=== PATIENT | male | born 1960 | race Caucasian/White ===

== ENCOUNTER → 2020-06-10 08:03 | Outpatient (BNVA) | payer SELFPAY | PROVIDERS: PCP Nurse Practitioner Family | DX: Z13.89 Encounter for screening for other disorder (principal) ==

== ENCOUNTER → 2022-12-14 09:52 | Outpatient (BNVA) | payer OTHER, SELFPAY | PROVIDERS: PCP Nurse Practitioner Family; Visit Provider Nurse Practitioner Family | DX: F07.81 Postconcussional syndrome (principal); G43.009 Migraine without aura, not intractable, without status migrainosus; H60.92 Unspecified otitis externa, left ear; M62.838 Other muscle spasm; H93.13 Tinnitus, bilateral | CPT/HCPCS: 99202 ==

== ENCOUNTER 2023-03-28 09:07 | Outpatient (AMB) | payer OTHER, SELFPAY ==
--- NOTE | 2023-03-28 09:08 | MHC.OFFVIS ---
Intake Vital Signs 03/28/23 09:13 Height 5 ft 8 in Weight 181 lb BMI 27.5 BP 122/88 Blood Pressure Location Lt brachial Position Sitting Pulse 74 Pulse Source Pulse Oximeter Pulse Oximetry (%) 96 Oxygen Delivery Method Room Air Intake Visit Reasons: 3 mo f/u for Headaches-Confimed Intake Note: Patient presents for 3 month follow up headaches. Patient states 'I'm much better but I'm still getting them and now with ringing in the ear stronger than before I also have been feeling pins and needles in my hands and feet and leg cramps. Allergies No Known Allergies Allergy (Unverified 03/28/23 09:23) Medication List - Last Reconciled 03/28/23 by AGGIE Mccoy ciprofloxacin-dexamethasone 0.3-0.1 % 4 drps otic (ears) Q12H 7 days loratadine 10 mg PO DAILY 30 days magnesium oxide 400 mg PO BEDTIME 30 days multivitamin 1 tab PO DAILY riboflavin (vitamin B2) 400 mg PO DAILY 30 days sumatriptan succinate 50 - 100 mg orally at onset of headache, may repeat in 2 hrs PRN; max 2 tabs per day or 4 tabs/week (may take with Ibuprofen) 30 days HPI HPI Comments History of Present Illness Details 63-yr-old male presents for f/u visit. Pt denies any significant interval medical changes. Pt reports his left ear bloody drng resolved upon taking the cipro ear gtts. He is having increased bothersome tinnitus His ENT appt was cancelled as his insurance changed and the office did not take his new insurance. His headache burden was much better after starting B2 and Mag, however he has more recently been unable to refill the B2 and headcahes have worsened. [facility] Medical History (Updated 12/14/22 @ 12:08 by AGGIE Mccoy) Depression Social History Alcohol intake: never Patient Tobacco Use Status: Never used Tobacco Review of Systems Const All systems reviewed & are unremarkable except as noted in HPI and below Physical Exam Vital Signs: Last Vital Signs Pulse 74 03/28/23 09:13 BP 122/88 03/28/23 09:13 Pulse Ox 96 03/28/23 09:13 Oxygen Delivery Method Room Air 03/28/23 09:13 BMI result Body Mass Index 27.5 Const General: cooperative and no acute distress Orientation/consciousness: patient oriented x3 HEENT Head: Yes normocephalic Resp Effort & Inspection: normal respiratory effort and able to speak in complete sentences Neuro General: patient oriented x3, gait normal and CN's II-XI intact bilaterally Cognition (Neuro): normal cognition Motor exam (neuro): 5/5 motor strength present throughout Psych Appearance: grossly normal Mental Status: mental status grossly normal Speech and movement: Normal speech and movement present Affect: normal affect Attitude: cooperative Thought process: Normal thought process present Thought content: Normal thought content present Insight: Good insight present (Psych) Judgement: Good judgement present (Psych) Assessment & Plan Assessment & Plan (1) Postconcussive syndrome: Comment: s/p concussion 05/2021 Code(s): F07.81 - Postconcussional syndrome (2) Tinnitus: Comment: bilateral, L > R, worsened s/p concussion 05/2021 Code(s): H93.19 - Tinnitus, unspecified ear Plan Will again take the liberty of referring pt to ENT for evaluation of worsening tinnitis. For overall headache management: Continue to optimize good self-care, including but not limited to maintaining a healthy diet, adequate fluid intake, adequate sleep, and engaging in regular physical activity. Track headaches. ? For acute headache treatment: Discussed importance of taking acute medications at the first sign of headache, however stressed importance of avoiding acute medication overuse (especially with combined headache medications). Continue Sumatriptan 100mg tab, 1/2 - 1 tab (50-100mg) at onset of headache, may repeat in 2 hours. Max of 2 tabs (200mg) per 24 hours. May adjunct with OTC Tylenol 650mg q 4 hours, Ibuprofen 600mg q 6 hours, or Naproxen 440mg q 12 hrs prn. Previous acute migraine medication trials: Advil- some effect Acute migraine medication contraindications: None at this time ? For headache prevention medication: Resume Riboflavin 400mg qam Continue Magnesium 400mg qhs Previous migraine prevention medication trials: None Migraine prevention medication contraindications: None at this time. Note that pt is hesitant to try most medications. ?? Pt to follow-up in 4 months or sooner prn. Orders: Referrals Ear/Nose/Throat Referral F07.81 - Postconcussional syndrome, H93.19 - Tinnitus, unspecified ear Medications: Refilled riboflavin (vitamin B2) 400 mg PO DAILY 30 days 30 tabs 6RF Coding Level of Care Code Est Pt Level 4 (81886) Diagnoses Postconcussive syndrome F07.81 Tinnitus H93.19
[2023-03-28 09:13] VITALS: BP 122/88; PULSE 74; O2SAT 96; BMI 27.5
== END 2023-03-28 10:05 | disposition home or self-care (01) ==
PROVIDERS: PCP Nurse Practitioner Family; Visit Provider Nurse Practitioner Family
DX: H93.13 Tinnitus, bilateral (principal); F07.81 Postconcussional syndrome; G44.309 Post-traumatic headache, unspecified, not intractable
CPT/HCPCS: 99214

== ENCOUNTER → 2023-03-28 09:07 | Outpatient (BNVA) | payer OTHER, SELFPAY | PROVIDERS: PCP Nurse Practitioner Family; Visit Provider Nurse Practitioner Family | DX: F07.81 Postconcussional syndrome (principal); H93.13 Tinnitus, bilateral; Z79.899 Other long term (current) drug therapy | CPT/HCPCS: 99212 ==

== ENCOUNTER 2023-07-30 07:56 | Outpatient (AMB) | payer OTHER, SELFPAY ==
--- NOTE | 2023-07-30 08:03 | MHC.OFFVIS ---
Intake Vital Signs 07/30/23 08:05 Height 5 ft 8 in Weight 183 lb BMI 27.8 BP 120/78 Blood Pressure Location Rt brachial Position Sitting Pulse 78 Pulse Source Pulse Oximeter Pulse Oximetry (%) 98 Oxygen Delivery Method Room Air Intake Visit Reasons: 3 mnts f/u for headaches-LVM Intake Note: Patient presents for 3 month follow up. My headaches have diminish but once in a while I'll get pain on the left side,I stopped all migraine headaches due to symptoms Allergies No Known Allergies Allergy (Unverified 07/30/23 08:10) Medication List - Last Reconciled 07/30/23 by AGGIE Mccoy loratadine 10 mg PO DAILY 30 days magnesium oxide 400 mg PO BEDTIME 30 days multivitamin 1 tab PO DAILY riboflavin (vitamin B2) 400 mg PO DAILY 30 days sumatriptan succinate 50 - 100 mg orally at onset of headache, may repeat in 2 hrs PRN; max 2 tabs per day or 4 tabs/week (may take with Ibuprofen) 30 days tadalafil 5 mg PO DAILY tamsulosin 0.4 mg PO DAILY HPI HPI Comments History of Present Illness Details 63-yr-old male presents for f/u visit. Pt denies any significant interval medical changes. He had audiology eval, states no change in hearing. 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 The has light pain almost all the time. The tinnitus is near constant. He wonders if tinnitus is what is causing the headaches. He did not tolerate Sumatriptan caused nausea. [facility] Medical History (Updated 12/14/22 @ 12:08 by AGGIE Mccoy) Depression Social History Alcohol intake: never Patient Tobacco Use Status: Never used Tobacco Physical Exam Vital Signs: Last Vital Signs Pulse 78 07/30/23 08:05 BP 120/78 07/30/23 08:05 Pulse Ox 98 07/30/23 08:05 Oxygen Delivery Method Room Air 07/30/23 08:05 BMI result Body Mass Index 27.8 Const General: cooperative and no acute distress Orientation/consciousness: patient oriented x3 Resp Effort & Inspection: normal respiratory effort and able to speak in complete sentences Neuro General: patient oriented x3 Cranial nerves: Yes CN's II-XII intact bilaterally Cognition (Neuro): normal cognition Psych Appearance: grossly normal Mental Status: mental status grossly normal Speech and movement: Normal speech and movement present Affect: normal affect Attitude: cooperative Assessment & Plan Assessment & Plan (1) Postconcussive syndrome: Comment: s/p concussion 05/2021 Code(s): F07.81 - Postconcussional syndrome (2) Migraine without aura: Code(s): G43.009 - Migraine without aura, not intractable, without status migrainosus (3) Tinnitus: Comment: bilateral, L > R, worsened s/p concussion 05/2021 Code(s): H93.19 - Tinnitus, unspecified ear Plan Will request ENT notes. ? For overall headache management: Continue to optimize good self-care, including but not limited to maintaining a healthy diet, adequate fluid intake, adequate sleep, and engaging in regular physical activity. Track headaches. ? For acute headache treatment: Hold Sumatriptan 100mg tab- not tolerated. May use OTC Tylenol 650mg q 4 hours, Ibuprofen 600mg q 6 hours, or Naproxen 440mg q 12 hrs prn. Previous acute migraine medication trials: Advil- some effect Acute migraine medication contraindications: None at this time ? For headache prevention medication: Continue Riboflavin 400mg qam Continue Magnesium 400mg qhs Trial Amitriptyline 5-10mg qhs. 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 Pt will ask his employer if he is allowed to take this- and let us know. If approved, pt will trial during the upcoming school vacation. Previous migraine prevention medication trials: None Migraine prevention medication contraindications: None at this time. Note that pt is hesitant to try most medications. ?? Pt to follow-up in 4 months or sooner prn. Medications: New amitriptyline at 7pm 5 - 10 mg (0.5 - 1 x 10 mg) PO BEDTIME 30 days 30 tabs 3RF Refilled magnesium oxide may hold for loose stools 400 mg PO BEDTIME 30 days 30 tabs 6RF riboflavin (vitamin B2) 400 mg PO DAILY 30 days 30 tabs 6RF Discontinued sumatriptan succinate Discontinued Reason: Doctor's Order (0.5 - 1 x 100 mg) 50 - 100 mg orally at onset of headache, may repeat in 2 hrs PRN; max 2 tabs per day or 4 tabs/week (may take with Ibuprofen) 30 days 12 tabs 6RF migraine headache Coding Level of Care Code Est Pt Level 4 (70309) Diagnoses Postconcussive syndrome F07.81 Migraine without aura G43.009 Tinnitus H93.19
[2023-07-30 08:05] VITALS: BP 120/78; PULSE 78; O2SAT 98; BMI 27.8
== END 2023-07-30 08:49 | disposition home or self-care (01) ==
PROVIDERS: PCP Nurse Practitioner Family; Visit Provider Nurse Practitioner Family
DX: G44.309 Post-traumatic headache, unspecified, not intractable (principal); F07.81 Postconcussional syndrome; H93.13 Tinnitus, bilateral
CPT/HCPCS: 99214

== ENCOUNTER → 2023-07-30 07:56 | Outpatient (BNVA) | payer OTHER, SELFPAY | PROVIDERS: PCP Nurse Practitioner Family; Visit Provider Nurse Practitioner Family | DX: G43.009 Migraine without aura, not intractable, without status migrainosus (principal); F07.81 Postconcussional syndrome; H93.19 Tinnitus, unspecified ear | CPT/HCPCS: 99212 ==

== ENCOUNTER 2023-11-28 10:39 | Outpatient (AMB) | payer OTHER, SELFPAY ==
[2023-11-28 10:51] VITALS: BP 128/88; PULSE 73; O2SAT 98; BMI 28.0
--- NOTE | 2023-11-28 10:51 | A.OFFVIS_ITS ---
Vital Signs 11/28/23 10:51 Height 5 ft 8 in Weight 184 lb BMI 28.0 BP 128/88 Blood Pressure Location Rt brachial Position Sitting Pulse 73 Pulse Source Pulse Oximeter Pulse Oximetry (%) 98 Oxygen Delivery Method Room Air Intake Visit Reasons: 3 mnts f/u for headaches-CONF Intake Note: Patient presents for 3 month follow up headaches. Patient states he feel better headaches are not as frequent and he's sleeping better. Allergies No Known Allergies Allergy (Unverified 07/30/23 08:10) Medication List - Last Reconciled 11/28/23 by AGGIE Mccoy loratadine 10 mg PO DAILY 30 days magnesium oxide 400 mg PO BEDTIME 30 days multivitamin 1 tab PO DAILY riboflavin (vitamin B2) 400 mg PO DAILY 30 days tadalafil 5 mg PO DAILY tamsulosin 0.4 mg PO DAILY HPI Comments Details: 63-yr-old male presents for f/u visit. Pt denies any significant interval medical changes. Overall he is trying to take better care of himself- eating better, drinking more water, and exercising more. Now jogging, jumping rope, cycling, weight training. Pt reports headcahes are btter- now about once a week and respond to Advil. Pt reports she is sleeping better. Baseline headache characteristics: Prodrome symptoms: Tiredness and heavy head. Aura: None Headache: [id number], pressure pain in left frontal or temporal a/w photophobia, phonophobia, nausea, mild dizziness- not quite right in space, brain fog, activity intolerance. [facility] Medical History (Updated 12/14/22 @ 12:08 by AGGIE Mccoy) Depression Social History Alcohol intake: never Patient Tobacco Use Status: Never used Tobacco Physical Exam Vital Signs: Last Vital Signs Pulse 73 11/28/23 10:51 BP 128/88 11/28/23 10:51 Pulse Ox 98 11/28/23 10:51 Oxygen Delivery Method Room Air 11/28/23 10:51 BMI result Body Mass Index 28.0 Const General: cooperative and no acute distress Orientation/consciousness: patient oriented x3 Resp Effort & Inspection: normal respiratory effort and able to speak in complete sentences Neuro General: patient oriented x3 Cranial nerves: Yes CN's II-XII intact bilaterally Cognition (Neuro): normal cognition Psych Appearance: grossly normal Mental Status: mental status grossly normal Speech and movement: Normal speech and movement present Affect: normal affect Attitude: cooperative Assessment & Plan Assessment & Plan (1) Migraine without aura: Code(s): G43.009 - Migraine without aura, not intractable, without status migrainosus Category: Medical (2) Tinnitus: Comment: bilateral, L > R, worsened s/p concussion 05/2021 Code(s): H93.19 - Tinnitus, unspecified ear Category: Medical Plan ? For overall headache management: Continue to optimize good self-care, including but not limited to maintaining a healthy diet, adequate fluid intake, adequate sleep, and engaging in regular physical activity. Track headaches. ? For acute headache treatment: May use OTC Tylenol 650mg q 4 hours, Ibuprofen 600mg q 6 hours, or Naproxen 44 0mg q 12 hrs prn. Previous acute migraine medication trials: Sumatriptan 100mg tab- not tolerated. Acute migraine medication contraindications: None at this time ? For headache prevention medication: Continue Riboflavin 400mg qam Continue Magnesium 400mg qhs Stopped Amitriptyline 5-10mg qhs- not tolerated. Previous migraine prevention medication trials: Amitriptyline 5-10mg qhs- not tolerated. Migraine prevention medication contraindications: None at this time. Note that pt is hesitant to try most medications. ?? Pt to follow-up in 6 months or sooner prn. Medications: Refilled magnesium oxide may hold for loose stools 400 mg PO BEDTIME 30 days 30 tabs 6RF riboflavin (vitamin B2) 400 mg PO DAILY 30 days 30 tabs 6RF Discontinued amitriptyline at 7pm Discontinued Reason: Doctor's Order 5 - 10 mg (0.5 - 1 x 10 mg) PO BEDTIME 30 days 30 tabs 3RF Coding Level of Care Code Est Pt Level 3 (30557) Diagnoses Migraine without aura G43.009 Tinnitus H93.19
== END 2023-11-28 11:39 | disposition home or self-care (01) ==
PROVIDERS: PCP Nurse Practitioner Family; Visit Provider Nurse Practitioner Family
DX: G43.009 Migraine without aura, not intractable, without status migrainosus (principal); H93.19 Tinnitus, unspecified ear
CPT/HCPCS: 99213

== ENCOUNTER → 2023-11-28 10:39 | Outpatient (BNVA) | payer OTHER, SELFPAY | PROVIDERS: PCP Nurse Practitioner Family; Visit Provider Nurse Practitioner Family | DX: G43.009 Migraine without aura, not intractable, without status migrainosus (principal); H93.19 Tinnitus, unspecified ear | CPT/HCPCS: 99212 ==

== ENCOUNTER 2024-06-23 10:49 | Outpatient (AMB) | payer OTHER, SELFPAY ==
--- OUTSIDE RECORDS SUMMARY | 2024-06-23 11:02 | XMS_ITS ---
Author Organization [facility] Address [address] [address] Care Team Providers Care Credit Collections Rep Name Role Phone Matt Green Unavailable [phone] ALLERGIES, ADVERSE REACTIONS, ALERTS None MEDICATIONS Medication Code Code System Start Date Stop Date Route Dosage Directions Fill Instructions betamethasone valerate RxNorm 01/13/20 topical 1 prednisone [id number] RxNorm 01/13/20 oral 1 PROBLEMS Problem Name Code Code System Start Date End Date Stat us Unspecified contact dermatit is due to plants, except food [facility] 01/13/2024 Activ e ENCOUNTERS Encounter Diagnosis Code Code System Date Stat us Unspecified contact dermatit is due to plants, except food [id number] [facility] 01/13/2024 Active IMMUNIZATIONS * None VITAL SIGNS Code Code System Vitals Name Date Value and Un its 8462-4 [facility] Blood Pressure-Diastolic 01/13/2024 71 mmHg 8480-6 [facility] Blood Pressure-Systolic 01/13/2024 1 22 mmHg 8867-4 [facility] Heart Rate 01/13/2024 78 /min 9279-1 [facility] Respiratory Rate 01/13/2024 18 /min 8310-5 [facility] Body Temperature 01/13/2024 97.4 F 71339-9 [facility] Oxygen Saturation 01/13/2024 95 % SOCIAL HISTORY * None PROCEDURES * None MEDICAL EQUIPMENT * Patient has no history of implantable devices ASSESSMENT * None TREATMENT PLAN Type Description Date MEDICATION Take 50 mg tablet 01/13/2024 MEDICATION Take 0.1 % cream 01/13/2024 APPOINTMENT If not feeling vita r in 3 day(s), please see your primary care physician. If you do not have a primary care physician, please return to this clinic. 01/13/2024 Lab Tests None GOALS * None HEALTH CONCERNS * No Health Concerns FUNCTIONAL AND COGNITIVE STATUS * None CONSULTATION NOTES * None DISCHARGE SUMMARY NOTES * None HISTORY AND PHYSICAL NOTES * None IMAGING NOTES * None LABORATORY REPORT NARRATIVE NOTES * None PATHOLOGY REPORT NARRATIVE NOTES * None PROGRESS NOTES * None
[2024-06-23 11:13] VITALS: BP 122/90; PULSE 71; O2SAT 95; BMI 28.4
--- NOTE | 2024-06-23 11:13 | A.OFFVIS_ITS ---
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 Pt reports he is 1 month s/p a urgent left inguinal hernia repair. He notes that he has had a weight gain since the surgery d/t post-op activity restrictions. However, he is eager to resume usual exercise routine once he is cleared to. He is still trying to eat and drink better. Pt reports his migraines are well-controlled- now just occasionally and continue to fully respond to Advil. Pt reports he is still sleeping better. Baseline headache characteristics: Prodrome symptoms: Tiredness and heavy head. Aura: None Headache: [id number], pressure pain in left frontal or temporal a/w photophobia, phonophobia, nausea, mild dizziness- not quite right in space, brain fog, activity intolerance. [facility] Medical History Depression Social History Alcohol intake: never Patient Tobacco Use Status: Never used Tobacco Physical Exam Vital Signs: Last Vital Signs Pulse 71 06/23/24 11:13 BP 122/90 H 06/23/24 11:13 Pulse Ox 95 06/23/24 11:13 Oxygen Delivery Method Room Air 06/23/24 11:13 BMI result Body Mass Index 28.4 Const General: cooperative and no acute distress Orientation/consciousness: patient oriented x3 Resp Effort & Inspection: normal respiratory effort and able to speak in complete sen tences Neuro General: patient oriented x3 Cranial nerves: Yes CN's II-XII intact bilaterally Cognition (Neuro): normal cognition Psych Appearance: grossly normal Mental Status: mental status grossly normal Speech and movement: Normal speech and movement present Affect: normal affect Attitude: cooperative Assessment & Plan Assessment & Plan (1) Migraine without aura: Code(s): G43.009 - Migraine without aura, not intractable, without status migrainosus Category: Medical (2) Tinnitus: Comment: bilateral, L > R, worsened s/p concussion 05/2021 Code(s): H93.19 - Tinnitus, unspecified ear Category: Medical Plan ? For overall headache management: Continue to optimize good self-care, including but not limited to maintaining a healthy diet, adequate fluid intake, adequate sleep, and engaging in regular physical activity. Track headaches. Monitor tinnitus clinically. ? For acute headache treatment: May use OTC Advil 400-600 mg q.4 to 6 hours as needed. Previous acute migraine medication trials: Sumatriptan 100mg tab- not tolerated. Acute migraine medication contraindications: None at this time ? For headache prevention medication: Continue Riboflavin 400mg qam Continue Magnesium 400mg qhs Previous migraine prevention medication trials: Amitriptyline 5-10mg qhs- not tolerated. Migraine prevention medication contraindications: None at this time. Note that pt is hesitant to try most medications. ?? Pt to follow-up in 12 months or sooner prn. Coding Level of Care Code Est Pt Level 3 (64698) Diagnoses Migraine without aura G43.009 Tinnitus H93.19
== END 2024-06-23 11:32 | disposition home or self-care (01) ==
PROVIDERS: PCP Nurse Practitioner Family; Visit Provider Nurse Practitioner Family
DX: G43.009 Migraine without aura, not intractable, without status migrainosus (principal); H93.19 Tinnitus, unspecified ear
CPT/HCPCS: 99213

== ENCOUNTER → 2024-06-23 10:49 | Outpatient (BNVA) | payer OTHER, SELFPAY | PROVIDERS: PCP Nurse Practitioner Family; Visit Provider Nurse Practitioner Family | DX: G43.009 Migraine without aura, not intractable, without status migrainosus (principal); H93.19 Tinnitus, unspecified ear | CPT/HCPCS: 99212 ==